=== PATIENT | female | born 1985 | race Caucasian/White ===

== ENCOUNTER 2023-07-28 14:20 | Outpatient (AMB) | payer OTHER, SELFPAY ==
--- NOTE | 2023-07-28 14:24 | MHC.OFFVIS ---
Intake Vital Signs 07/28/23 14:26 Height 5 ft 2 in Weight 244 lb 4.355 oz BMI 44.7 BP 124/90 H Blood Pressure Location Rt brachial Position Sitting Pulse 100 Pulse Source Pulse Oximeter Temp 97.0 F Temp Source Skin Pulse Oximetry (%) 97 Oxygen Delivery Method Room Air Intake Visit Reasons: Positive GERTRUDE Intake Note: New patient, externally referred by Ángela, presents today for +GERTRUDE. c/o low back x 7 years-intermittent c/o feet pain c/o right shoulder pain x few months c/o right thumb pain/soreness x 2 months c/o abd pain Reports extremely painful periods Has tried hearing pads. 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 Haney 38-year-old female presents today for evaluation of multiple joint pain and positive GERTRUDE history. The patient describes that she has noticed increasing pains to her lower back, feet, right shoulder and right thumb. She says that the lower back pain began about 7 years ago and it has worsened over the years. Her feet began about 2 years ago, shoulder about a year ago and thumb a few months ago. He has used heat pads but no specific medication. She has about a 30 to 40 lb weight gain over the years. She denies sun sensitivity, uveitis, rashes, sores in the mouth or nose, hair loss and excessive fatigue. 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 She does not have or ever experienced red, warm, swollen joints. She says her feet do feel puffy sometimes if she has been walking or standing for a long time but they resolve without issue. She does feel that her feet are getting bigger especially the toe box because her shoes from priors do not fit. [facility] Medical History (Updated 07/28/23 @ 17:21 by KD Mart) Obesity, morbid, BMI 40.0-49.9 Obesity (BMI 35.0-39.9 without comorbidity) Pes planus of both feet History of antinuclear antibodies Myalgia Pain in joint involving multiple sites Anxiety Allergic rhinitis Acne Snoring Hyposmia Recurrent sinus infections Perennial allergic rhinitis Allergic conjunctivitis, bilateral Class 2 severe obesity due to excess calories with serious comorbidity and body mass index (BMI) of 38.0 to 38.9 in adult COVID-19 Surgical History (Updated 07/21/23 @ 16:23 by ULISES Issa) History of laparoscopic appendectomy Hx of cholecystectomy Family History (Updated 07/28/23 @ 14:31 by ULISES Issa) Father Arthritis Myocardial infarction Mother Fibromyalgia Social History (Updated 07/28/23 @ 14:30 by ULISES Issa) Alcohol intake: former Patient Tobacco Use Status: Never used Tobacco e-Cigarette/Vaping Use: Never Used Current occupational status: employed 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 External ear normal. NOSE/SINUS:? Airflow through both nares, no nasal discharge, no bleeding THROAT:? Oral mucosa moist, no ulcerations NECK:? No thyromegaly or masses, no adenopathy, trachea midline. HEART:? Regular rhythm, S1-S2 heard, no murmurs, rubs or gallops. LUNG:? Clear to percussion and auscultation EXTREMITIES:? No edema, no calf tenderness, normal peripheral pulses. NEURO:? Oriented and alert x3.? No focal weakness.? Reflexes symmetric.? Gait normal. SKIN:? There are no skin lesions evident. No objective signs of Raynaud's phenomenon. JOINT EXAM: Cervical Spine:.? Full range of motion without pain; no tenderness. Thoracic Spine:.? No scoliosis.? No tenderness on palpation. Lumbar Spine:.? Alignment normal.? Full range of motion without pain, mild tenderness and fells like it is pulling per patient. Chest Wall:.? No tenderness, swelling, increased warmth or erythema. Hands:.? Normal pain-free range of motion without tenderness, swelling, increased warmth or erythema. Able to make a full fist and has a good customer experience strategist strength. Wrists:.? Normal pain-free range of motion without tenderness, swelling, increased warmth or erythema. Elbows:. Normal pain-free range of motion without tenderness, swelling, increased warmth or erythema. Shoulders:.?? Full range of motion without pain. tenderness to left joint line anterior but no weakness, swelling, increased warmth or erythema. Hips:.? Full range of motion without pain. Hip bursa:.? No tenderness. Knees:.?? Normal pain-free range of motion with tenderness to bilateral pes anserine bursa but no swelling, increased warmth or erythema.? There is no effusion or crepitation Ankles:.? Normal pain-free range of motion without tenderness, swelling, increased warmth or erythema. Feet:.? Normal pain-free range of motion without tenderness, swelling, increased warmth or erythema. pes planus bilateral Tender points:? Mild tenderness to digital palpation at the occiput, trapezius, second rib, lateral epicondyle, knees, greater trochanter and gluteal area bilaterally. ? Assessment & Plan Assessment & Plan (1) Myalgia: Code(s): M79.10 - Myalgia, unspecified site (2) Pain in joint involving multiple sites: Code(s): M25.50 - Pain in unspecified joint (3) Pes planus of both feet: Code(s): M21.41 - Flat foot [pes planus] (acquired), right foot; M21.42 - Flat foot [pes planus] (acquired), left foot (4) Obesity, morbid, BMI 40.0-49.9: Code(s): E66.01 - Morbid (severe) obesity due to excess calories Plan #Multiple joint pain/myalgia/positive GERTRUDE: After initial careful review of medical history and available diagnostic, and physical examination, I do not see an underlying autoimmune connective tissue disease/inflammatory process at this time. The patient does have a history of positive GERTRUDE dating back to 2021. I will do lab studies to evaluate further. Though the patient describes myalgia, I did not elicit any tenderness in her muscles during PE. She is also able to move all her extremities without concerns and no decreased range of motion was identified. She does have some stiffness in her lower back, with extremes of range of motion, which I think is largely due to deconditioning and can be improved with stretches. #Pes planus: I discussed with the patient that some of her discomfort can be alleviated by proper shoes with arch supports. I also explained patient that given that she is chronically wearing flat shoes that offers no support to her feet could explain why her feet have widened over the years. #Obesity: We also discuss how lifestyle changes can improve her joint achiness and overall health. An overall decrease in her weight can reduce the stress on the musculature. The patient agrees and will pursue efforts with weight loss to include increased activity and diet changes. I spent 45 minutes reviewing history, evaluating patient and documenting Orders: Orders Erythrocyte Sedimentation Rate Today M25.50 - Pain in unspecified joint, M79.10 - Myalgia, unspecified site Complete Blood Count Auto Diff Today M25.50 - Pain in unspecified joint, M79.10 - Myalgia, unspecified site C Reactive Protein Today M25.50 - Pain in unspecified joint, M79.10 - Myalgia, unspecified site Creatine Kinase Total Today M25.50 - Pain in unspecified joint, M79.10 - Myalgia, unspecified site Immunoglobulins,IgG IgA IgM Today M25.50 - Pain in unspecified joint, M79.10 - Myalgia, unspecified site Rheumatoid Factor Today M25.50 - Pain in unspecified joint, M79.10 - Myalgia, unspecified site Mitochondrial Antibody Today Z86.2 - Personal history of diseases of the blood and blood-forming organs and certain disorders involving the immune mechanism Smooth Muscle Antibody Today Z86.2 - Personal history of diseases of the blood and blood-forming organs and certain disorders involving the immune mechanism Liver Kidney Microsomal Ab Today Z86.2 - Personal history of diseases of the blood and blood-forming organs and certain disorders involving the immune mechanism Thyroglobulin Antibodies Today Z86.2 - Personal history of diseases of the blood and blood-forming organs and certain disorders involving the immune mechanism Thyroid Peroxidase Antibodies Today Z86.2 - Personal history of diseases of the blood and blood-forming organs and certain disorders involving the immune mechanism XR foot RT min 3V Today M21.41 - Flat foot [pes planus] (acquired), right foot, M21.42 - Flat foot [pes planus] (acquired), left foot, M25.50 - Pain in unspecified joint, M79.10 - Myalgia, unspecified site XR foot LT min 3V Today M21.41 - Flat foot [pes planus] (acquired), right foot, M21.42 - Flat foot [pes planus] (acquired), left foot, M25.50 - Pain in unspecified joint, M79.10 - Myalgia, unspecified site GERTRUDE Reflex Titer and Pattern Today M25.50 - Pain in unspecified joint, M79.10 - Myalgia, unspecified site Anti DNA DS Antibody Today M25.50 - Pain in unspecified joint, M79.10 - Myalgia, unspecified site Anti Extractable Nuclear Ag Today M25.50 - Pain in unspecified joint, M79.10 - Myalgia, unspecified site Complement C3 Today M25.50 - Pain in unspecified joint, M79.10 - Myalgia, unspecified site Complement C4 Today M25.50 - Pain in unspecified joint, M79.10 - Myalgia, unspecified site Comprehensive Met. Panel Today M25.50 - Pain in unspecified joint, M79.10 - Myalgia, unspecified site Cyclic Citrullinated Peptide Today M25.50 - Pain in unspecified joint, M79.10 - Myalgia, unspecified site HLA B27 Today M25.50 - Pain in unspecified joint, M79.10 - Myalgia, unspecified site Coding Level of Care Code New Pt Level 5 (33391) Diagnoses Myalgia M79.10 Pain in joint involving multiple sites M25.50 Pes planus of both feet M21.41; M21.42 Obesity, morbid, BMI 40.0-49.9 E66.01
[2023-07-28 14:26] VITALS: BP 124/90; PULSE 100; TEMP 36.1; O2SAT 97; BMI 44.7
== END 2023-07-28 15:35 | disposition home or self-care (01) ==
PROVIDERS: Visit Provider Nurse Practitioner Family
DX: M79.10 Myalgia, unspecified site (principal); M25.59 Pain in other specified joint; M21.41 Flat foot [pes planus] (acquired), right foot; M21.42 Flat foot [pes planus] (acquired), left foot; E66.01 Morbid (severe) obesity due to excess calories
CPT/HCPCS: 99204

== ENCOUNTER → 2023-07-28 14:20 | Outpatient (BNVA) | payer OTHER, SELFPAY | PROVIDERS: Visit Provider Nurse Practitioner Family | DX: M79.10 Myalgia, unspecified site (principal); M25.50 Pain in unspecified joint; M21.41 Flat foot [pes planus] (acquired), right foot; M21.42 Flat foot [pes planus] (acquired), left foot; E66.01 Morbid (severe) obesity due to excess calories; Z68.41 Body mass index [BMI] 40.0-44.9, adult | CPT/HCPCS: 99202 ==